=== PATIENT | female | born 1955 | race Caucasian/White ===

== ENCOUNTER 2017-03-31 08:17 | Day surgery (SDC) | payer OTHER ==
[2017-02-02 10:43] VITALS: BP 139/94
[~2017-03-31] VITALS: Ht 161.3 cm; Wt 54.0 kg
[~2017-03-31 08:17] MED LIST: ACETAMINOPHEN 500 MG TABLET PO STA; ANAS1TAB PO; BUPIVACAINE/PF 0.25% ONE; BUPIVACAINE/PF 0.5% ONE; CEFAZOLIN 1,000 MG ONE; EPINEPHRINE 1 MG/ML, 1ML ONE; ESTROGENS CONJUGATED VAG CRM 0.625MG/1G, 30GM ONE; FENTANYL PF 100 MCG/2ML ONE; FLUORESCEIN SODIUM 500 MG/5 ML ONE; GABAPENTIN 300 MG CAPSULE PO STA; GLYCOPYRROLATE 0.4 MG/2 ML, 2ML ONE; LACTATED RINGERS 1,000 ML IV SCH; MIDAZOLAM 1 MG/ML, 2ML ONE; MULT-658 PO; NEOSTIGMINE 1 MG/ML, 10ML ONE; OxyconTIN ER 10 MG TAB.ER PO STA; PROPOFOL 10 MG/ML, 20ML ONE; ROCURONIUM 10 MG/ML,10ML ONE; THROMBIN 5,000 UNIT VIAL TP ONE
[2017-03-31] MEDS ORDERED: LACTATED RINGERS 1,000 ML IV SCH (08:46)
[2017-03-31] MEDS ORDERED: ACETAMINOPHEN 500 MG TABLET ONE (08:49)
[2017-03-31] MEDS ORDERED: GABAPENTIN 300 MG CAPSULE ONE (08:50)
[2017-03-31] MEDS ORDERED: OxyconTIN ER 10 MG TAB.ER ONE (08:51)
[2017-03-31] MEDS ORDERED: LIDOCAINE 1%, 2ML ONE (08:52)
[2017-03-31] MEDS ORDERED: LIDOCAINE 1%, 2ML SQ PRN (09:00)
[2017-03-31] MEDS ORDERED: MIDAZOLAM 1 MG/ML, 2ML ONE (09:02)
[2017-03-31] MEDS ORDERED: FENTANYL PF 250 MCG/5ML ONE (09:02)
[2017-03-31] MEDS ORDERED: THROMBIN 5,000 UNIT VIAL TP ONE (09:03)
[2017-03-31] MEDS ORDERED: BUPIVACAINE/PF 0.25% ONE (09:03)
[2017-03-31] MEDS ORDERED: FLUORESCEIN SODIUM 500 MG/5 ML ONE (09:03)
[2017-03-31] MEDS ORDERED: OxyconTIN ER 10 MG TAB.ER PO SCH (09:30)
[2017-03-31] MEDS ORDERED: GABAPENTIN 300 MG CAPSULE PO SCH (09:30)
[2017-03-31] MEDS ORDERED: ACETAMINOPHEN 500 MG TABLET PO ONE (09:30)
[2017-03-31] MEDS ORDERED: DEXAMETHASONE 4 MG/ML, 1ML ONE ×2 (09:32→09:38)
[2017-03-31] MEDS ORDERED: PROPOFOL 10 MG/ML, 20ML ONE (09:38)
[2017-03-31] MEDS ORDERED: ROCURONIUM 10 MG/ML,10ML ONE (09:38)
[2017-03-31] MEDS ORDERED: ONDANSETRON 2MG/ML, 2ML ONE (10:48)
[2017-03-31] MEDS ORDERED: FENTANYL PF 100 MCG/2ML IV PRN (11:30)
[2017-03-31] MEDS ORDERED: LABETALOL 5MG/ML, 20ML IV PRN (11:30)
[2017-03-31] MEDS ORDERED: MEPERIDINE/PF 25MG/0.5ML IVPush PRN (11:30)
[2017-03-31] MEDS ORDERED: PROMETHAZINE 25 MG/ML, 1ML IV PRN (11:30)
[2017-03-31] MEDS ORDERED: hydrALAzine 20 MG/ML, 1ML IV PRN (11:30)
[2017-03-31] MEDS ORDERED: ONDANSETRON 2MG/ML, 2ML IVPush PRN (11:30)
[2017-03-31] MEDS ORDERED: OXYcodone 5 MG/5 ML ORAL.SOL UDC PO PRN (11:30)
[2017-03-31] MEDS ORDERED: HYDROmorphone 1 MG/ML, 1ML IV PRN (11:30)
[2017-03-31] MEDS ORDERED: KETOROLAC 30 MG/1 ML ONE (11:34)
[2017-03-31] MEDS ORDERED: KETOROLAC 30 MG/1 ML IV PRN (12:00)
== END 2017-03-31 16:20 ==
LOC: OUT 08:17
PROVIDERS: ATTEND Obstetrics & Gynecology
DX: N81.4 Uterovaginal prolapse, unspecified (principal); N81.10 Cystocele, unspecified; N81.6 Rectocele; N84.0 Polyp of corpus uteri; Z85.3 Personal history of malignant neoplasm of breast; Z98.890 Other specified postprocedural states; Z90.13 Acquired absence of bilateral breasts and nipples
CPT/HCPCS: 52000; 57265; 58552; 88304; 88305; J1100; J1885; J2250; J2405; J2704; J3010; J3490; J7120; J0171; J0690; J2710

== ENCOUNTER → 2017-10-18 | Outpatient (CLI) | payer OTHER ==
[~2017-10-18] MED LIST changes: -ACETAMINOPHEN 500 MG TABLET PO STA; -BUPIVACAINE/PF 0.25% ONE; -BUPIVACAINE/PF 0.5% ONE; -CEFAZOLIN 1,000 MG ONE; -EPINEPHRINE 1 MG/ML, 1ML ONE; -ESTROGENS CONJUGATED VAG CRM 0.625MG/1G, 30GM ONE; -FENTANYL PF 100 MCG/2ML ONE; -FLUORESCEIN SODIUM 500 MG/5 ML ONE; -GABAPENTIN 300 MG CAPSULE PO STA; -GLYCOPYRROLATE 0.4 MG/2 ML, 2ML ONE; -LACTATED RINGERS 1,000 ML IV SCH; -MIDAZOLAM 1 MG/ML, 2ML ONE; -NEOSTIGMINE 1 MG/ML, 10ML ONE; -OxyconTIN ER 10 MG TAB.ER PO STA; -PROPOFOL 10 MG/ML, 20ML ONE; -ROCURONIUM 10 MG/ML,10ML ONE; -THROMBIN 5,000 UNIT VIAL TP ONE
== END | disposition home or self-care (01) ==
LOC: CFH 10:09
PROVIDERS: ATTEND Internal Medicine Hematology & Oncology
DX: Z13.820 Encounter for screening for osteoporosis (principal); M85.88 Other specified disorders of bone density and structure, other site; N95.9 Unspecified menopausal and perimenopausal disorder; C50.919 Malignant neoplasm of unspecified site of unspecified female breast
CPT/HCPCS: 77080

== ENCOUNTER 2019-10-22 09:49 | Outpatient (CLI) | payer OTHER | END 2019-10-22 23:59 | disposition home or self-care (01) | LOC: CFH 09:49 | PROVIDERS: ATTEND Internal Medicine Hematology & Oncology | DX: Z13.820 Encounter for screening for osteoporosis (principal); C50.919 Malignant neoplasm of unspecified site of unspecified female breast; M85.89 Other specified disorders of bone density and structure, multiple sites | CPT/HCPCS: 77080 ==